=== PATIENT | male | born 1985 | race Caucasian/White ===

== ENCOUNTER 2018-03-15 00:18 | Emergency (ER) | payer OTHER ==
[~2018-03-15] VITALS: Ht 182.9 cm; Wt 86.2 kg
[2018-03-15] MEDS ORDERED: DEPAKOTE 250MG250 M1 PO (00:43)
[2018-03-15] MEDS ORDERED: QUETIAPINE FUM100 MG PO (00:43)
[2018-03-15] MEDS ORDERED: TRAZODONE HCL100 MG PO (00:44)
[2018-03-15] MEDS ORDERED: HYDROXYZINE HCL50 MG PO (00:45)
[2018-03-15 00:52] LABS: URINE BLOOD 2+ (Negative); URINE CLARITY CLEAR; URINE COLOR DARK YELLOW; URINE GLUCOSE-RANDOM NEGATIVE (Negative); URINE KETONES 2+ (Negative); URINE LEUKOCYTES-REFLEX NEGATIVE (Negative); URINE NITRITE-REFLEX NEGATIVE (Negative); URINE PROTEIN 1+ (Negative); URINE SPECIFIC GRAVITY >= 1.030 (1.005-1.030); URINE UROBILINOGEN 0.2 E.U./dl (0.2-1.0)
[2018-03-15 00:58] LABS: AMP/METHAMP Negative (Negative); BARBITURATES Negative (Negative); BENZODIAZEPINES Negative (Negative); COCAINE Negative (Negative); METHADONE Negative (Negative); OPIATES Negative (Negative); PCP Negative (Negative); THC POSITIVE (Negative); URINE BILIRUBIN 2+ (Negative)
[2018-03-15 01:00] LABS: ICTOTEST (BILI CONFIRMATORY) Negative (Negative)
[2018-03-15 01:02] LABS: CASTS None Seen /LPF (None Seen); MUCUS >6 Heavy strn/LPF (None Seen); SQUAMOUS 0-3 Few /LPF (0-3); URINE RBC 0-2 Rare /HPF (0-2); URINE WBC-REFLEX 0-5 Rare /HPF (0-5)
[2018-03-15 01:03] LABS: CRYSTALS None Seen /LPF (None Seen)
[2018-03-15 01:14] LABS: ABSOLUTE EOSINOPHILS 0.1 thou/uL (0.0-0.7); ABSOLUTE LYMPHOCYTES 1.8 thou/uL (0.8-5.3); ABSOLUTE MONOCYTES 0.5 thou/uL (0.0-1.2); ABSOLUTE NEUTROPHILS 3.6 thou/uL (1.6-8.1); BASOPHILS 0.5 %; EOSINOPHILS 1.8 %; HEMATOCRIT 45.7 % (42.0-52.0); HEMOGLOBIN 15.5 gm/dL (14.0-18.0); LYMPHOCYTES 29.3 %; MCH 30.6 pg (26.0-34.0); MCHC 33.9 g/dL (28.0-37.0); MCV 90.2 fL (80.0-100.0); MONOCYTES 8.7 %; MPV 7.9 fl. (7.2-11.1); NUCLEATED RBCS 0 /100WBC; PLATELET COUNT* 228 thou/uL (150-400); POLYS 59.7 %; RBC 5.07 mil/uL (4.50-6.00); RDW-CV 12.8 % (10.5-14.5); WBC 6.1 thou/uL (4.0-11.0)
[2018-03-15 01:21] LABS: CALCIUM 8.7 mg/dL (8.5-10.1); CREATININE 1.2 mg/dL (0.6-1.3); POTASSIUM 3.8 mmol/L (3.5-5.1)
[2018-03-15 01:37] LABS: ALBUMIN 3.8 g/dL (3.4-5.0); TOTAL BILIRUBIN 0.7 mg/dL (<0.1-1.0); TOTAL PROTEIN 6.8 g/dL (6.4-8.2)
[2018-03-15 01:39] LABS: ALCOHOL < 10 mg/dL (<10); SALICYLATE < 2.8 mg/dL (2.8-20.0)
[2018-03-15 01:41] LABS: ACETAMINOPHEN < 2 ug/mL (10-30)
[2018-03-15 04:30] VITALS: BP 127/69
== END 2018-03-15 04:30 | disposition home or self-care (01) ==
LOC: M.ERS 00:18
PROVIDERS: Emergency Medicine
DX: F32.9 Major depressive disorder, single episode, unspecified (principal); R45.851 Suicidal ideations